=== PATIENT | male | born 1955 | race Two or more races ===

== ENCOUNTER 2018-07-06 07:00 | Day surgery (SDC) | payer OTHER ==
[~2018-07-06 07:00] MED LIST: FENOFIBRATE160 MG PO; LIPITOR20 MG PO; VASOTEC20 M1 PO
[2018-07-06] MEDS ORDERED: COLACE100 MG PO (10:44)
[2018-07-06] MEDS ORDERED: PERCOCET 5-3251 EACH PO (10:44)
== END 2018-07-06 18:30 | disposition home or self-care (01) ==
LOC: CIR.AMB 07:00
DX: K60.1 Chronic anal fissure (principal)